=== PATIENT | male | born 1950 | race Caucasian/White ===

== ENCOUNTER 2021-06-17 15:03 | Inpatient (IN) | payer MEDICARE ==
[~2021-06-17] VITALS: Ht 185.4 cm; Wt 81.6 kg
[~2021-06-17 15:03] MED LIST: BACTROBAN OINT22 GM TOP; COLACE 100MG C100 MG PO; NORCO 5-325 TA1 EACH PO; NORCO 7.5-3251 EACH PO; ZYVOX 600 MG T600 MG PO
[2021-06-17 16:10] LABS: HEMOGLOBIN 11.7 gm/dl (14.0-17.5); RED BLOOD COUNT 3.64 M/UL (4.20-5.50); WHITE BLOOD COUNT 7.9 K/UL (4.5-11.0)
[2021-06-17 16:39] LABS: BUN/CREATININE RATIO 16 (0-10)
[2021-06-17] MEDS ORDERED: ATORVASTATIN CA40 MG PO (18:31)
[2021-06-17] MEDS ORDERED: ANORO ELLIPTA1 EACH INH (18:31)
[2021-06-17] MEDS ORDERED: LEVOTHYROXINE50 MCG PO (18:32)
[2021-06-17] MEDS ORDERED: ENTRESTO 24 MG1 EACH PO (18:32)
[2021-06-17] MEDS ORDERED: METOPROLOL SUCC25 MG PO (18:32)
[2021-06-17] MEDS ORDERED: POTASSIUM CHLO20 ME1 PO (18:33)
[2021-06-17] MEDS ORDERED: ASPIRIN EC81 MG PO (18:33)
[2021-06-17] MEDS ORDERED: FUROSEMIDE40 MG PO (18:33)
--- NOTE | 2021-06-18 02:14 | NUR ---
APPROX 2054 PT INSTRUCTED AND DEMOSTRATED ON HOW TO USE I/S. PT STATES HE UNDERSTANDS AND DEMOSTRATED BACK CORRECTLY. 1200ML AT THIS TIME
[2021-06-18 05:39] LABS: HEMOGLOBIN 10.1 gm/dl (14.0-17.5); RED BLOOD COUNT 3.19 M/UL (4.20-5.50); WHITE BLOOD COUNT 8.8 K/UL (4.5-11.0)
[2021-06-18 07:33] LABS: BUN/CREATININE RATIO 14 (0-10)
[2021-06-19 06:06] LABS: HEMOGLOBIN 7.7 gm/dl (14.0-17.5); RED BLOOD COUNT 2.39 M/UL (4.20-5.50); WHITE BLOOD COUNT 13.3 K/UL (4.5-11.0)
[2021-06-20 03:41] LABS: WHITE BLOOD COUNT 11.4 K/UL (4.5-11.0)
[2021-06-20 03:45] LABS: RED BLOOD COUNT 2.04 M/UL (4.20-5.50)
[2021-06-20 03:46] LABS: HEMOGLOBIN 6.3 gm/dl (14.0-17.5)
[2021-06-21 04:53] LABS: HEMOGLOBIN 7.5 gm/dl (14.0-17.5)
[2021-06-21 04:54] LABS: RED BLOOD COUNT 2.5 M/UL (4.20-5.50)
[2021-06-21 05:04] LABS: BUN/CREATININE RATIO 13 (0-10)
[2021-06-22 06:43] LABS: WHITE BLOOD COUNT 7.9 K/UL (4.5-11.0)
[2021-06-22 07:28] LABS: BUN/CREATININE RATIO 14 (0-10)
[2021-06-22] MEDS ORDERED: ENOXAPARIN40 MG/0.4 SC (11:40)
--- NOTE | 2021-06-22 12:24 | NUR ---
06/22/21 1220 REPORT CALLED TO CESAR AT [facility] AT [phone]
[2021-06-22] MEDS ORDERED: PERCOCET 5-3251 EACH PO (13:02)
== END 2021-06-22 15:31 | disposition home health service (06) | DRG 481 ==
LOC: ER1 15:03 → M/S 17:46 → CDU 17:46 → M/S 19:50
PROVIDERS: Family Medicine; Internal Medicine; Orthopaedic Surgery; ADMIT Internal Medicine
PROC: 0QS606Z Reposition Right Upper Femur with Intramedullary Internal Fixation Device, Open Approach (ICD-10-PCS; principal; 2021-06-18 09:51)
PROC: 30233N1 Transfusion of Nonautologous Red Blood Cells into Peripheral Vein, Percutaneous Approach (ICD-10-PCS; 2021-06-20)
DX: S72.141A Displaced intertrochanteric fracture of right femur, initial encounter for closed fracture (principal); N17.9 Acute kidney failure, unspecified; D62 Acute posthemorrhagic anemia; Z20.822 Contact with and (suspected) exposure to COVID-19; I25.10 Atherosclerotic heart disease of native coronary artery without angina pectoris; J44.9 Chronic obstructive pulmonary disease, unspecified; E03.9 Hypothyroidism, unspecified; E78.5 Hyperlipidemia, unspecified; I11.0 Hypertensive heart disease with heart failure; I50.9 Heart failure, unspecified; D69.6 Thrombocytopenia, unspecified; F17.200 Nicotine dependence, unspecified, uncomplicated; W01.0XXA Fall on same level from slipping, tripping and stumbling without subsequent striking against object, initial encounter; Z98.890 Other specified postprocedural states; Z82.3 Family history of stroke; Z79.899 Other long term (current) drug therapy; Z79.82 Long term (current) use of aspirin
CPT/HCPCS: 36415; 36430; 71045; 73502; 73552; 76000; 80048; 80053; 81001; 82550; 82553; 82607; 82728; 82746; 83540; 83550; 83735; 83874; 83880; 84100; 84484; 85025; 85027; 85610; 86850; 86900; 86901; 86920; 93005; 94640; 94664; 94760; 96374; 96375; 96376; 97110-GP-CQ; 97116-GP-CQ; 97161; 97166; 97530; 97530-GP-CQ; 97535; 99285; A6212; C1713; J0690; J1100; J1170; J1650; J2001; J2250; J2270; J2405; J2795; J3010; J3475; J7030; J7120; P9016; U0002